=== PATIENT | female | born 1955 | race Caucasian/White ===

== ENCOUNTER → 2021-08-10 | Outpatient (CLI) | payer MEDICARE ==
--- NOTE | 2021-08-10 12:00 | 2DMMODE ---
[place] [address] 2 D/M-MODE ECHOCARDIOGRAM Name: RENATONEGRITA Chip Room: [facility]#: [id number] Admission: 08/10/21 Attend Phys: Physician not on s Discharge: Date of : 57 Date of Service: 08/10/21 1159 Report #: [id number] THIS REPORT FOR: cc: Mendez Burgos MD, Michael S. MD Liston, Michael J. MD [facility] ~ APPROVED REPORT Study performed: 08/10/2021 10:54:11 EXAM: Comprehensive 2D, Doppler, and color-flow Echocardiogram Patient Location: Out-Patient BSA: 1.78 HR: 82 bpm BP: 117/80 mmHg Other Information Study Quality: Good Indications Ovarian cancer 2D Dimensions IVSd: 10.50 (7-11mm) LVOT Diam: 20.26 (18-24mm) LVDd: 46.31 mm PWd: 9.57 (7-11mm) Ascending Ao: 30.97 (22-36mm) LVDs: 29.24 (25-40mm) Aortic Root: 26.48 mm Volumes Left Atrial Volume (Systole) LA ESV Index: 12.90 mL/m2 Aortic Valve AoV Peak Abelino.: 1.12 m/s AO Peak Gr.: 4.98 mmHg LVOT Max P.85 mmHg AO Mean Gr.: 3.12 mmHg LVOT Mean P.17 mmHg LVOT Max V: 0.98 m/s AO V2 VTI: 22.62 cm LVOT Mean V: 0.69 m/s KARAN (VTI): 2.93 cm2 LVOT V1 VTI: 20.56 cm Mitral Valve E/A Ratio: 0.67 [place] [address] 2 D/M-MODE ECHOCARDIOGRAM Name: NEGRITA GROSS Room: [facility]#: [id number] Admission: 08/10/21 Attend Phys: Physician not on s Discharge: Date of : 57 Date of Service: 08/10/21 1159 Report #: [id number] MV Decel. Time: 310.79 ms MV E Max Abelino.: 0.42 m/s MV PHT: 90.13 ms MVA (PHT): 2.44 cm2 TDI E/Lateral E': 5.25 E/Medial E': 5.25 Medial E' Abelino.: 0.08 m/s Lateral E' Abelino.: 0.08 m/s Pulmonary Valve PV Peak Abelino.: 0.71 m/s PV Peak Gr.: 2.01 mmHg Tricuspid Valve RAP Estimate: 5.00 mmHg TR Peak Gr.: 22.08 mmHg RVSP: 27.08 mmHg PA Pressure: 27.08 mmHg Left Ventricle The left ventricle is normal size. There is normal LV segmental wall motion. There is normal left ventricular wall thickness. Left ventricular systolic function is normal. LVEF is 60-65%. Grade I - abnormal relaxation pattern. Right Ventricle The right ventricle is normal size. The right ventricular systolic function is normal. Atria The left atrium size is normal. The right atrium size is normal. Aortic Valve The aortic valve is normal in structure. No aortic regurgitation is present. There is no aortic valvular stenosis. Mitral Valve The mitral valve is normal in structure. Trace mitral regurgitation. No evidence of mitral valve stenosis. Tricuspid Valve The tricuspid valve is normal in structure. Mild tricuspid regurgitation. No pulmonary hypertension. Pulmonic Valve The pulmonary valve is normal in structure[place] [address] 2 D/M-MODE ECHOCARDIOGRAM Name: NEGRITA GROSS Chip Room: [facility]#: [id number] Admission: 08/10/21 Attend Phys: Physician not on s Discharge: Date of : 57 Date of Service: 08/10/21 1159 Report #: [id number] regurgitation. Great Vessels The aortic root is normal in size. IVC is normal in size and collapses >50% with inspiration. Pericardium There is no pericardial effusion. <Conclusion> The left ventricle is normal size. There is normal left ventricular wall thickness. Left ventricular systolic function is normal. LVEF is 60-65%. Grade I - abnormal relaxation pattern. Trace mitral regurgitation. Mild tricuspid regurgitation. No pulmonary hypertension. IVC is normal in size and collapses >50% with inspiration. <ELECTRONICALLY SIGNED> By: Mendez Suero MD, FACC 08/10/21 1159 1159 1159 Mendez Suero MD, FACC /INF
== END ==
LOC: M.CRD 08:41
DX: I07.1 Rheumatic tricuspid insufficiency (principal); C56.2 Malignant neoplasm of left ovary